=== PATIENT | male | born 1985 | race Caucasian/White ===

== ENCOUNTER 2022-07-01 07:41 | Emergency (ER) | payer OTHER, SELFPAY ==
[2022-07-01 07:48] VITALS: BP 135/108; PULSE 73; RESP 18; TEMP 36.6; O2SAT 100; BMI 23.0
--- NOTE | 2022-07-01 08:04 | CRLHL7_ITS ---
For Patients: As a result of the Cures Act, medical imaging exams and procedure reports are released immediately into your electronic medical record. You may view this report before your referring provider. If you have questions, please contact your health care provider. Indication: Saw blade injury Technique: Three views of the left hand were acquired Comparison: None Findings: No fracture, dislocation or destructive process. Evidence of soft tissue injury. No radiopaque foreign body. Impression: No fracture, dislocation or destructive process. No foreign body. Dictated by Marcelo Nelson MD @ 07/01/2022 8:51:26 AM (Electronically Signed)
--- NOTE | 2022-07-01 08:08 | ED_ITS ---
HPI - General Adult General Time Seen by Provider: 08:08 Date Seen: 07/01/22 Chief complaint: Laceration/Wound Stated complaint: Lac left ring finger Time Seen by Provider: 07/01/22 07:49 Source: patient Mode of arrival: ambulatory Limitations: no limitations History of Present Illness HPI narrative: Patient cut his ring finger medially on a soft yesterday at about 2:00 p.m.. Good hemostasis now. Patient has had history of sepsis by report, and he is concerned as he did feel great this morning. Does not appear to have a fever today. His wound is clean he has got a macerated area on the medial aspect of the PIP area. It is fairly closed. Range of motions fairly full but limited due to swelling at the injury site Related Data Previous Rx's Medication Instructions Recorded cephalexin 500 mg capsule 500 mg PO QID #20 caps 07/01/22 Allergies Allergy/AdvReac Type Severity Reaction Status Date / Time Iodinated Contrast Media Allergy edema Verified 07/01/22 07:48 Review of Systems Status of ROS: Reports: 6 or more systems reviewed and unremarkable except as noted in History and below Exam Narrative: Exam Narrative: Macerated type laceration medial aspect of the ring finger, range of motion is normal flexion extension at the PIP is normal against resistance. Patient is uncertain of his last tetanus shot, thinks he might had [place]. There is no cellulitic change around the wound and no ascending cellulitic change. No other injuries noted Const: Vital Signs, click to edit/add: Vital Signs - 24 hr 07/01/22 07:48 Temperature 97.9 F Pulse Rate [Right Pulse Oximeter] 73 Respiratory Rate 18 Blood Pressure [Ri ght Upper Arm] 135/108 H Pulse Oximetry 100 Oxygen Delivery Me thod Room Air Course Vital Signs Vital signs: Initial Vital Signs Temperature 97.9 F 07/01/22 07:48 Temperature Source Temporal Artery Scan 07/01/22 07:48 Pulse Rate 73 07/01/22 07:48 Respiratory Rate 18 07/01/22 07:48 Blood Pressure 135/108 H 07/01/22 07:48 Blood Pressure Mean 117 07/01/22 07:48 Blood Pressure Position Sitting 07/01/22 07:48 Pulse Oximetry 100 07/01/22 07:48 Oxygen Delivery Method 07/01/22 07:48 Vital Signs Temperature 97.9 F 07/01/22 07:48 Pulse Rate 73 07/01/22 07:48 Respiratory Rate 18 07/01/22 07:48 Blood Pressure 135/108 H 07/01/22 07:48 Pulse Oximetry 100 07/01/22 07:48 Oxygen Delivery Method 07/01/22 07:48 Temperature 97.9 F 07/01/22 07:48 Pulse Rate 73 07/01/22 07:48 Respiratory Rate 18 07/01/22 07:48 Blood Pressure 135/108 H 07/01/22 07:48 Pulse Oximetry 100 07/01/22 07:48 Oxygen Delivery Method 07/01/22 07:48 Medical Decision Making MDM Narrative Medical decision making narrative: Patient is a good distance of time no from the injury, I think could be better to leave it open and let it heal by secondary intent it is well approximated at this point. He does not appear to have any deep tendon involvement or joint involvement. Will check an x-ray of the finger given updated Tdap, Keflex 500 orally continue 500 q.i.d. x5 days will soak his hand in sterile solution now and then covert leave it covered for 24 hours, then may soak it off and cover with a bandage. Recommend light use of the hand for the next 3-4 days until recheck with primary care Addendum: By my review the patient's x-ray has no obvious bony trauma. Antibiotics at home, keep covered for 24 hours, then soak off the wound and dressing and cover with a bandage, light activity for the next 3-5 days until recheck with primary care Discharge Plan Discharge Clinical Impression: Laceration Patient Disposition: Home, Self-Care Condition: Stable Additional Instructions: Keep the wound covered for 24 hours then may wear a bandage over it and soak it couple times a day, Keflex 500 q.i.d. x5 days, update tetanus shot today, light activity and use of the hand until recheck in 3-4 days. Activity Level: Light activity Activity Detail: Light use of the hand for 3 days until follow-up Discharge Diet: Regular Prescriptions: New cephalexin 500 mg capsule 500 mg PO QID Qty: 20 0RF Follow Up/Referrals: Provider,Not a Local [Primary Care Provider] - Stand Alone [facility]: [facility] Info Instructions
[2022-07-01] MEDS: TETANUS/DIPHTH/PERTUSSIS 0.5 ML SYRINGE IM (08:17)
[2022-07-01] MEDS: cephALEXin 500 MG CAPSULE PO (08:19)
--- NOTE | 2022-07-01 09:05 | PC.NURSE ---
wound cleansed with hibiclense and NS, telfa dressing with bacitracin applied
== END 2022-07-01 09:05 | disposition home or self-care (01) ==
PROVIDERS: Emergency Provider Family Medicine
DX: S61.215A Laceration without foreign body of left ring finger without damage to nail, initial encounter (principal)
CPT/HCPCS: 73130; 90471; 90715; 99284; A9270